=== PATIENT | female | born 1970 | race Caucasian/White ===

== ENCOUNTER → 2016-06-03 | Outpatient (CLI) | payer BC | LOC: MC.RAD 14:58 | DX: Z12.31 Encounter for screening mammogram for malignant neoplasm of breast (principal) ==

== ENCOUNTER → 2018-07-20 | Outpatient (CLI) | payer BC | LOC: MC.RAD 14:35 | DX: Z12.31 Encounter for screening mammogram for malignant neoplasm of breast (principal); Z98.82 Breast implant status ==

== ENCOUNTER → 2020-01-31 | Outpatient (CLI) | payer BC | LOC: MC.RAD 12:51 | DX: N63.13 Unspecified lump in the right breast, lower outer quadrant (principal) ==

== ENCOUNTER → 2020-02-03 | Outpatient (CLI) | payer BC | LOC: MC.RAD 12:56 | DX: N63.10 Unspecified lump in the right breast, unspecified quadrant (principal); Z98.82 Breast implant status ==

== ENCOUNTER 2020-06-01 09:00 | Outpatient (RCR) | payer BC ==
[2020-04-21 08:56] VITALS: BP 115/80; PULSE 77; TEMP 98.4
[2020-05-04 10:00] VITALS: BP 99/65; PULSE 80; TEMP 98
[2020-05-18 09:25] VITALS: BP 112/75; PULSE 73; TEMP 98.9
[~2020-06-01] VITALS: Ht 165.1 cm; Wt 74.2 kg
[~2020-06-01 09:00] MED LIST: COMPAZINE 110 MG/TAB PO; DECADRON 4MG TAB4 MG PO; LEXAPRO 10MG10 MG PO; NORCO 325 MG-51 TAB PO; TYLENOL 325MG325 MG PO; ZOFRAN8 MG PO
[2020-06-01 09:07] VITALS: BP 95/62; PULSE 96; TEMP 98.2
== END 2020-06-01 11:00 | disposition home or self-care (01) ==
LOC: EUO 09:00
DX: C50.911 Malignant neoplasm of unspecified site of right female breast (principal); D70.1 Agranulocytosis secondary to cancer chemotherapy
CPT/HCPCS: Q5120

== ENCOUNTER 2021-04-15 16:07 | Emergency (ER) | payer BC ==
[~2021-04-15] VITALS: Ht 162.6 cm; Wt 63.6 kg
[2021-04-15 18:01] LABS: BASO % 0.3 % (0.0-2.0); EOS % 0.7 % (0.0-4.0); GRAN # 2.3 K/mm3 (1.4-6.5); GRAN % 77.2 % (42.2-75.2); HEMOGLOBIN 12.7 g/dl (12.5-16.0); LYMPH # 0.5 K/mm3 (1.2-3.4); LYMPH % 16.8 % (20.0-51.0); MEAN CELL VOLUME 98 fl (80.0-100.0); MEAN CORPUSCULAR HEMOGLOBIN 35 pg (27-31); MEAN CORPUSCULAR HGB CONC 35 g/dl (33.0-37.0); MEAN PLATELET VOLUME 9.3 fl (7.4-10.4); MONO # 0.1 K/mm3 (0.1-0.6); MONO % 4.3 % (1.7-9.3); PLATELET COUNT 191 K/mm3 (130-400); RED BLOOD COUNT 3.67 M/mm3 (4.10-5.30); REDCELL DISTRIBUTION WIDTH-CV 14.6 % (11.5-14.5)
[2021-04-15 18:02] LABS: HEMATOCRIT 35.9 % (37.0-47.0)
[2021-04-15 18:16] LABS: ALBUMIN 3.7 gm/dL (3.5-5.0); BILIRUBIN,TOTAL 0.5 mg/dL (0.2-1.2); CALCIUM 9.6 mg/dL (8.4-10.2); CREATININE, serum 0.76 mg/dL (0.57-1.11); POTASSIUM 4.3 mmol/L (3.5-4.5); TOTAL PROTEIN 7.3 gm/dL (6.2-8.1)
[2021-04-15] MEDS ORDERED: PERCOCET 325 MG1 TA2 PO (19:48)
[2021-04-15 20:05] VITALS: BP 130/71; PULSE 89; TEMP 98.1
== END 2021-04-15 20:05 | disposition home or self-care (01) ==
LOC: COL.ER 16:07
PROVIDERS: Personal Emergency Response Attendant
DX: S22.42XA Multiple fractures of ribs, left side, initial encounter for closed fracture (principal); C79.81 Secondary malignant neoplasm of breast; F17.200 Nicotine dependence, unspecified, uncomplicated; W06.XXXA Fall from bed, initial encounter
CPT/HCPCS: J2270; J2405; Q9967

== ENCOUNTER → 2022-02-03 | Outpatient (RCR) | payer BC ==
[~2022-02-03] MED LIST changes: +PERCOCET 325 MG1 TA2 PO
== END | disposition home or self-care (01) ==
LOC: WSPT
DX: C50.911 Malignant neoplasm of unspecified site of right female breast (principal); I89.0 Lymphedema, not elsewhere classified; Z17.0 Estrogen receptor positive status [ER+]; Z98.890 Other specified postprocedural states

== ENCOUNTER 2022-07-03 15:45 | Outpatient (RCR) | payer BC | END 2022-07-04 | disposition home or self-care (01) | LOC: WSPT | DX: C50.911 Malignant neoplasm of unspecified site of right female breast (principal); I89.0 Lymphedema, not elsewhere classified; Z17.0 Estrogen receptor positive status [ER+]; Z98.890 Other specified postprocedural states ==

== ENCOUNTER 2022-11-18 13:30 | Outpatient (RCR) | payer BC | END 2022-12-04 | disposition home or self-care (01) | LOC: WSPT | DX: C50.911 Malignant neoplasm of unspecified site of right female breast (principal); I89.0 Lymphedema, not elsewhere classified; Z17.0 Estrogen receptor positive status [ER+]; Z98.890 Other specified postprocedural states ==

== ENCOUNTER 2023-09-29 12:00 | Outpatient (RCR) | payer BC | END 2023-10-04 | disposition home or self-care (01) | LOC: WSPT | DX: C50.911 Malignant neoplasm of unspecified site of right female breast (principal); I89.0 Lymphedema, not elsewhere classified; Z17.0 Estrogen receptor positive status [ER+]; Z98.890 Other specified postprocedural states ==